=== PATIENT | male | born 1975 | race Caucasian/White ===

== ENCOUNTER → 2018-12-05 15:38 | Outpatient (CLI) | payer OTHER, SELFPAY ==
--- NOTE | 2018-12-05 | DI.MRI.S_ITS ---
PROCEDURE: MR KNEE RT WO CON INDICATIONS: PAIN IN RIGHT KNEE TECHNIQUE: Noncontrast sagittal PD fast spin echo and T2 fast spin echo with fat saturation, sagittal 3-D FLASH with fat saturation; coronal T1 spin echo and PD fast spin echo with fat saturation, and axial PD fast spin echo with fat saturation through the knee. COMPARISON: None. FINDINGS: Image quality: Excellent. Menisci: Subtle tear involving the free margin of the posterior horn of the medial meniscus is seen on image 24 series 8, image 21 series 10. Lateral meniscus appears intact Cruciate ligaments: The anterior and posterior cruciate ligaments appear intact. Medial structures: The medial collateral ligament appears mildly thickened although this could be chronic low-grade sprain image 17 series 10. The posterior oblique ligament, semimembranosus tendon insertions, oblique popliteal ligament, and meniscocapsular junction appear intact. Visualized portions of the pes anserinus tendons appear normal. No abnormal bursal fluid. Lateral structures: Low-grade age-indeterminate sprain of the lateral collateral ligament. The long and short heads of the biceps femoris tendon appear intact. The popliteus tendon appears normal; the popliteofibular ligament appears intact. The posterosuperior and anteroinferior popliteomeniscal fascicles appear intact. The arcuate and fabellofibular ligaments appear intact, on either side of the lateral inferior geniculate artery. Iliotibial band appears normal. Anterior structures: Distal quadriceps and proximal patellar tendinopathy is seen. There is trace fluid in the deep infrapatellar bursa. Patellar alignment is normal. No femoral trochlear dysplasia or ventral trochlear prominence. No edema in the infrapatellar fat pad. Bones and cartilage: No bone marrow contusions or fractures. Within the medial compartment, there is no focal articular cartilage defect. Within the lateral compartment, there is diffuse low-grade partial-thickness loss of the femoral cartilage without focal defect. Within the patellofemoral compartment, no focal articular cartilage defect Joint space: Small joint effusion is present. No Gordon's cyst. No intra-articular loose bodies identified. IMPRESSION: Medial meniscal tear involving the free margin of the posterior horn. Age indeterminate low-grade sprain of the medial collateral ligament. Age-indeterminate low-grade sprain of the proximal lateral collateral ligament. Mild degenerative joint disease. Small joint effusion. Mild distal quadriceps and proximal patellar tendinopathy. Dictated by: Maurilio Youssef M.D. on 12/06/2018 at 9:04 Approved by: Maurilio Youssef M.D. on 12/06/2018 at 9:23
== END ==
PROVIDERS: Visit Provider Student in an Organized Health Care Education/Training Program
DX: M25.561 Pain in right knee (principal); S83.241A Other tear of medial meniscus, current injury, right knee, initial encounter; S83.421A Sprain of lateral collateral ligament of right knee, initial encounter; S83.411A Sprain of medial collateral ligament of right knee, initial encounter; M17.11 Unilateral primary osteoarthritis, right knee; M25.461 Effusion, right knee; M67.863 Other specified disorders of tendon, right knee
CPT/HCPCS: 73721